=== PATIENT | female | born 2005 | race Caucasian/White ===

== ENCOUNTER 2024-12-20 12:51 | Emergency (ER) | payer BC ==
[2024-12-20 14:33] LABS: #Basophils 0.03 10x3/uL (0.0-0.2); #Eosinophils 0.08 10x3/uL (0.0-0.5); #Monocytes 0.88 10x3/uL (0.0-1.1); #Neutrophils 5.46 10x3/uL (1.5-8.4); %Basophils 0.4 % (0.0-2.0); %Eosinophils 1.0 % (0.0-6.0); %Lymphocytes 17.2 % (18.0-47.0); %Monocytes 11.2 % (0.0-10.0); %Neutrophils 69.7 % (40.0-75.0); Hematocrit 37.7 % (34.9-44.5); Hemoglobin 13.1 g/dL (12.0-15.5); Mean Corpuscular Hemoglobin 29.2 pg (27.0-33.0); Mean Corpuscular Volume 84.0 fL (81.6-98.3); Platelet Count 394 10x3/uL (150-450); Red Blood Cell (RBC) Count 4.49 10x6/uL (3.90-5.03); White Blood Cell (WBC) Count 7.84 10x3/uL (3.5-10.5)
[2024-12-20 14:37] LABS: BHCG - Serum Negative (NEGATIVE); Pregs Control Background? CLEAR/WHITE (CLR/WHITE); Pregs Control Bar Appear? YES (CONTROL BAR)
[2024-12-20 14:44] LABS: ALT (SGPT) 15 U/L (Less than 34); AST (SGOT) 22 U/L (11-34); Albumin 4.3 g/dL (3.1-4.5); Alkaline Phosphatase 89 U/L (40-100); Anion Gap 10 mmol/L (10-20); BUN (Urea Nitrogen) 8 mg/dL (7.0-18.7); Bilirubin, Total 0.2 mg/dL (0.3-1.2); Calc. Creatinine Clearance 0 mL/min (70-130); Calcium 9.0 mg/dL (7.8-10.44); Carbon Dioxide 27 mmol/L (22-29); Chloride 107 mmol/L (98-107); Globulin 2.7 g/dL (2.4-3.5); Glucose 96 mg/dL (70-105); Potassium 3.9 mmol/L (3.5-5.1); Sodium 140 mmol/L (136-145)
== END 2024-12-20 15:00 | disposition home or self-care (01) ==
LOC: CSHERS 12:51
DX: R55 Syncope and collapse (principal)
CPT/HCPCS: 80053; 84703; 85025; 93005; 96360